=== PATIENT | female | born 1970 | race Caucasian/White ===

== ENCOUNTER → 2018-04-15 10:22 | Outpatient (REF) | payer MEDICAID, SELFPAY ==
[2018-04-15 15:52] LABS: TSH (W/Ref FT4) 3.58 uIU/mL (0.358-3.74)
== END ==
LOC: NCHCN 10:22
PROVIDERS: PCP Nurse Practitioner Family; Visit Provider Nurse Practitioner Family
DX: E03.9 Hypothyroidism, unspecified (principal)
CPT/HCPCS: 84443

== ENCOUNTER 2018-11-03 14:55 | Outpatient (REF) | payer MEDICAID, SELFPAY ==
[2018-11-03 19:49] LABS: TSH (W/Ref FT4) 2.91 uIU/mL (0.358-3.74)
== END 2018-11-03 15:15 ==
LOC: NCHCN 14:55
PROVIDERS: PCP Nurse Practitioner Family; Visit Provider Nurse Practitioner Family
DX: E03.9 Hypothyroidism, unspecified (principal)
CPT/HCPCS: 84443

== ENCOUNTER 2019-02-24 01:53 | Outpatient (CLI) | payer MEDICAID, SELFPAY ==
[2019-02-24 10:01] LABS: HCT 42.7 % (36.0-46.0); HGB 14.2 g/dL (12.0-15.5); Mean Corp. HGB Concentration 33.3 g/dL (32.0-36.0); Mean Corpuscular Hemoglobin 27.7 pg (27.0-33.0); Mean Corpuscular Volume 83.2 fL (80-95); Mean Platelet Volume 9.9 fL (8.0-11.0); Platelet Count 210 x1000/uL (130-400); RBC 5.13 m/cumm (4.00-5.20); RBC Distribution Width 14.4 % (11.7-14.6)
[2019-02-24 10:40] LABS: ALT 29 U/L (12-78); AST 14 U/L (15-37); Albumin 3.7 g/dL (3.4-5.0); Alkaline Phosphatase 78 U/L (46-116); Anion Gap 8.6 mmol/L (3-11); BUN 16 mg/dL (7-18); Bilirubin, Total 0.4 mg/dL (0.2-1.0); CO2 28.4 mmol/L (21.0-32.0); CREATININE 0.93 mg/dL (0.55-1.02); Calcium 8.8 mg/dL (8.5-10.1); Calculated LDL 195 mg/dL; Chloride 107 mmol/L (98-107); Cholesterol 271 mg/dL (50-200); Glucose 101 mg/dL (70-100); HDL Cholesterol 55 mg/dL (40-60); Potassium 4.8 mmol/L (3.5-5.1); Sodium 144 mmol/L (136-145); TSH (W/Ref FT4) 5.56 uIU/mL (0.358-3.74); Total Protein 6.8 g/dL (6.4-8.2); Triglyceride 105 mg/dL (30-150)
[2019-02-24 10:56] LABS: FREE T4 0.92 ng/dL (0.76-1.46)
== END 2019-02-24 02:13 ==
PROVIDERS: PCP Nurse Practitioner Family; Visit Provider Nurse Practitioner Family
DX: E03.9 Hypothyroidism, unspecified (principal); R53.83 Other fatigue
CPT/HCPCS: 36415; 80053; 80061; 83721; 85027; 84439; 84443

== ENCOUNTER 2019-04-20 08:06 | Outpatient (REF) | payer MEDICAID, SELFPAY ==
[2019-04-20 12:15] LABS: ALT 32 U/L (14-59); AST 17 U/L (15-37); Albumin 3.9 g/dL (3.4-5.0); Alkaline Phosphatase 82 U/L (46-116); BUN 8 mg/dL (7-18); Bilirubin, Total 0.4 mg/dL (0.2-1.0); CO2 30.1 mmol/L (21.0-32.0); CREATININE 0.76 mg/dL (0.55-1.02); Calcium 8.9 mg/dL (8.5-10.1); Chloride 106 mmol/L (98-107); Glucose 111 mg/dL (70-100); TSH (W/Ref FT4) 2.18 uIU/mL (0.36-3.74)
[2019-04-20 12:20] LABS: Anion Gap 7.9 mmol/L (3-11); Potassium 4.2 mmol/L (3.5-5.1); Sodium 144 mmol/L (136-145)
== END 2019-04-20 08:26 ==
LOC: NCHCN 08:06
PROVIDERS: PCP Nurse Practitioner Family; Visit Provider Nurse Practitioner Family
DX: E03.9 Hypothyroidism, unspecified (principal); Z79.899 Other long term (current) drug therapy
CPT/HCPCS: 80053; 84443

== ENCOUNTER 2019-10-07 02:09 | Emergency (ER) | payer MEDICAID, SELFPAY ==
--- NOTE | 2019-10-07 02:14 | ED.GENADUL_ITS ---
Discharge Plan Disposition Patient Disposition: HOME Condition: Good Discharge Details Chief Complaint: Anxiety Clinical Impression: Panic attack, Atypical chest pain Primary Care Provider: Esdras Lopez ED Provider: Morgan Solares Backus Meds and New Rx's Prescriptions: Continued levothyroxine 75 MCG tablet 100 mcg PO DAILY RF: 0 melatonin 5 MG tablet 5 mg PO HS RF: 0 sertraline 100 mg Tablet 150 mg PO HS RF: 0 amitriptyline 25 mg Tablet 25 mg PO HS RF: 0 buspirone 15 mg Tablet 15 mg PO BID RF: 0 Discharge Instructions Additional Instructions: Continue current medications and follow-up with primary care. Return to ED for new or different chest pain, shortness of breath, uncontrolled anxiety, other concerns problems. Referrals: Esdras Lopez, [facility] [Primary Care Provider] - Medical Decision Making Patient presenting with severe panic attack which she has not had in quite some time. Has learned various techniques to usually control her anxiety and is on different medications. Tonight unable to control anxiety which led to full- blown panic attack. The rib and back pain that she is experiencing now she has experienced in the past with panic attacks but not for some time due to ability to control things. There is no SI or HI. Will give IM Ativan to help with her anxiety. Will obtain EKG once patient more comfortable. Given her history and her symptoms similar to this in the past I am not overly concerned that there is any type of cardiac event going on. 3AM - Ativan has broken the anxiety/panic attack and she is meditating and using breathing techniques at this time. EKG without any acute changes. Now just pain/spasm which she usually uses heating pads for. Will give IM Toradol. 3:30 AM - Toradol has helped with her pain. She is much more relaxed. Feels better and wants to go home. Again confirms that this is not something new and she has had pain/attacks like this previously. Will follow up with PCP. ECG Data Attestation: I personally reviewed and interpreted this ECG (s) as follows: Prior ECG tracings: not available for review Interpretation: Sinus rhythm at 63 with normal axis and intervals. No ST changes. HPI General Mode of arrival: ambulatory . Date/Time Provider Initiated Documentation: 10/07/19 02:11 . Limitations to Documentation: no limitations . Information obtained by: patient and RN notes reviewed . HPI Narrative: Patient presents to ED with anxiety/panic attack. Patient has history of same. She is on medications and uses mindful meditation and cognitive behavioral therapy to help manage things. Natasha started to have anxiety around 6 PM. Did her typical things that usually work but got progressively worse tonight instead. Has now developed severe anxiety with rib, sternal, back pain which she has not had in a long time because she has been able to control her anxiety so much better now. She had one episode of vomiting because of the pain. She has not been ill recently. She just saw her primary care yesterday morning for med check. There is no SI. Related Data Home Medications Medication Instructions Recorded Confirmed levothyroxine 100 mcg PO DAILY 03/16/16 10/07/19 melatonin 5 mg PO HS 09/07/17 amitriptyline 25 mg PO HS 10/07/19 10/07/19 buspirone 15 mg PO BID 10/07/19 10/07/19 sertraline 150 mg PO HS 10/07/19 10/07/19 Allergies Allergy/AdvReac Type Severity Reaction Status Date / Time No Known Allergies Allergy Unverified 10/07/19 02:21 Review of Systems Narrative: As documented in HPI otherwise negative as below. Const: no fever, chills, weakness Resp: no cough, SOB, pleuritic pain CV: CP; no diaphoresis, edema, syncope GI: vomiting x1; no abdominal pain, nausea, diarrhea Neuro: no headache, numbness, focal weakness, confusion PFSH Medical History Anxiety (Acute) DVT (deep venous thrombosis) (Inactive) Hypercholesterolemia (Chronic) Hypothyroidism (Chronic) Surgical History section (Inactive) X 3 Dilation and curettage (Inactive) X 2 for menorrhagia Endometrial Ablation (Inactive ~2007) Family History Mother Diabetes Heart disease Social History Smoking/Tobacco Use Status: Never Alcohol Intake: never Drug use: Never Substance use type: does not use Do you feel safe at home: Yes Do you feel safe in your relationship?: Yes Exam Narrative Exam Narrative: Vitals: Afebrile. Elevated blood pressure otherwise normal vitals and normal room air pulse ox. Const: Obese female in position crying. HEENT: NC/AT. Neck: Supple. Trachea midline. Lungs: Normal respiratory effort. Lungs are clear. Cor: RRR without murmur/gallop. Good radial pulses. Neuro: A+O x 3. Normal speech, mentation, gait. Cranial nerves II - XII grossly intact. No gross motor or sensory deficit. Psych: Crying, anxious, postion. No SI/HI.
[2019-10-07 02:16] VITALS: BP 168/98; PULSE 72; RESP 20; TEMP 36.8; O2SAT 98
[2019-10-07] MEDS: LORazepam 2 MG/ML VIAL IM (02:25)
[2019-10-07 02:47] VITALS: RESP 20
[2019-10-07] MEDS: Ketorolac 30 MG/ML VIAL IM (03:11)
[2019-10-07 03:59] VITALS: BP 168/98; PULSE 72; RESP 20; TEMP 36.8; O2SAT 98
== END 2019-10-07 03:55 | disposition home or self-care (01) ==
PROVIDERS: Emergency Provider Emergency Medicine; PCP Nurse Practitioner Family
DX: F41.0 Panic disorder [episodic paroxysmal anxiety] (principal); R07.89 Other chest pain; R11.11 Vomiting without nausea
CPT/HCPCS: 93005; 96372; 99284; 93010; J1885; J2060

== ENCOUNTER 2020-05-30 00:47 | Outpatient (CLI) | payer MEDICAID, SELFPAY ==
--- NOTE | 2020-05-30 10:12 | DI.MAMMO_ITS ---
EXAM: MAMMO SCREENING CLINICAL HISTORY: SCREENING,Z12.39 TECHNIQUE: Mammograms were interpreted according to the usual protocol including computer analysis w [employer] CAD system, tomosynthesis and C-view imaging. COMPARISON: FINDINGS: The breasts are of moderate density with fairly symmetrical distribution of fibroglandular tissue. N o dominant mass or clumped microcalcification is identified in either breast. The current examinatio n is compared with previous examinations including November 2016 and there has been no gross interval ch trent in appearance in comparison with the prior studies. IMPRESSION: No specific evidence of malignancy at this time. Routine screening examinations are suggested yearly intervals in this age group according to the ACS ACR guidelines. BI-RADS Category 1 - Negative Breast Density - Category B - Scattered areas of fibroglandular density
== END 2020-05-30 01:07 ==
PROVIDERS: PCP Nurse Practitioner Family; Visit Provider Nurse Practitioner Family
DX: Z12.31 Encounter for screening mammogram for malignant neoplasm of breast (principal)
CPT/HCPCS: 77063; 77067

== ENCOUNTER 2020-10-07 01:39 | Outpatient (CLI) | payer MEDICAID, SELFPAY ==
[2020-10-07 11:09] LABS: FREE T4 1.14 ng/dL (0.76-1.46)
== END 2020-10-07 01:40 | disposition home or self-care (01) ==
LOC: LBO 01:39
PROVIDERS: PCP Nurse Practitioner Family; Visit Provider Nurse Practitioner Family
DX: R53.83 Other fatigue (principal); E03.9 Hypothyroidism, unspecified
CPT/HCPCS: 36415; 84439; 84443

== ENCOUNTER 2020-12-23 09:55 | Outpatient (REF) | payer MEDICAID, SELFPAY ==
[2020-12-23 15:49] LABS: Calculated LDL 75 mg/dL (<100); Cholesterol 142 mg/dL (<200); HDL Cholesterol 44 mg/dL (40-60); TSH (W/Ref FT4) 3.46 uIU/mL (0.36-3.74); Triglyceride 115 mg/dL (<150)
== END 2020-12-23 09:56 | disposition home or self-care (01) ==
LOC: NCHCN 09:55
PROVIDERS: PCP Nurse Practitioner Family; Visit Provider Nurse Practitioner Family
DX: E03.9 Hypothyroidism, unspecified (principal); E78.5 Hyperlipidemia, unspecified
CPT/HCPCS: 80061; 84443

== ENCOUNTER 2021-04-22 12:53 | Emergency (ER) | payer MEDICAID, SELFPAY ==
--- NOTE | 2021-04-22 12:45 | RT.EKG_ITS ---
APPROVED REPORT Exam: Resting ECG Reason for Exam: possible clot Patient Location: E Ht:1 ft 1 in Wt:1 lbs BSA: 0.06 m2 HR:54 bpm ECG Measurements Heart Rate 54 AXIS OH 228 P 40 QRSd 110 QRS -15 QT 453 T -22 QTc 430 Conclusion Sinus bradycardia...rate< 60 Prolonged OH interval...OH >210, V-rate 50- 90 Physician: No STEMI, unremarkable
[2021-04-22 12:57] VITALS: BP 136/92; PULSE 106; TEMP 36.2; O2SAT 100
--- NOTE | 2021-04-22 13:12 | ED.GENADUL_ITS ---
Discharge Plan Disposition Patient Disposition: HOME Condition: Good Discharge Details Clinical Impression: Superficial thrombophlebitis Primary Care Provider: Esdras Lopez ED Provider: Audi Lagos Home Meds and New Rx's Prescriptions: New cephalexin 500 mg capsule 500 mg PO QID 5 Days Qty: 20 RF: 0 Continued levothyroxine 75 MCG tablet 100 mcg PO DAILY RF: 0 melatonin 5 MG tablet 5 mg PO HS RF: 0 sertraline 100 mg Tablet 150 mg PO HS RF: 0 amitriptyline 25 mg Tablet 25 mg PO HS RF: 0 buspirone 15 mg Tablet 15 mg PO BID RF: 0 Discharge Instructions Instructions: Superficial Thrombophlebitis (ED) Additional Instructions: At this time you show evidence of superficial thrombophlebitis which is a very small clot in your superficial varicose vein. Please take a daily 325 mg aspirin for the next week, apply heat as often as possible throughout the day, take Tylenol and Motrin as needed for pain, and apply the Bashir wrap throughout the day. At this time there is no evidence of infection, however if you do notice redness or no improvement of your symptoms over the next 48 hours please take the antibiotic as directed. If you notice any worsening of your symptoms, or any new symptoms such as vomiting, diarrhea, fever, chills, shortness of breath, chest pain, numbness, weakness, or fainting , please return immediately to the emergency department for reevaluation. Please follow up with your primary care provider as soon as possible for reassessment and reevaluation. As always, it was a pleasure participating in your medical care today. Referrals: Esdras Lopez, [facility] [Primary Care Provider] - Medical Decision Making This is a 50-year-old female with a past medical history of previous superficial thrombophlebitis, high cholesterol, hypothyroidism, anxiety, who presents today for evaluation of suspected superficial thrombophlebitis. Patient states that yesterday she developed mild tenderness on her varicosity on her left anterior lateral thigh. She states that she has had this before, never been on and has never been on blood thinners, but it usually gets better with antibiotics and heating/warm compresses. Patient denies any chest pain, shortness of breath, long trips, surgeries, or procedures. She denies any previous pulmonary embolisms or DVTs requiring anticoagulation. She has no other complaints at this time. No other modifying factors. She denies any calf tenderness. Exam demonstrates evidence clinically consistent with superficial thromb ophlebitis. No clinical evidence of DVT. Patient will be recommended for Tylenol Motrin or aspirin, warm compresses, and she'll be given an antibiotic if she does develop any redness or worsening of her pain over the next 48 hours. Discussed red flags which to return. No indication for systemic anticoagulation at this time. I have extensively reviewed the treatment plan and discharge instructions with the patient. I have addressed all patient concerns at this time. The patient was made aware of what symptoms to monitor for that would warrant a return to the emergency department. Discussed the plan with the patient, they demonstrate verbal understanding and agreement with our assessment and plan at this time. The documentation in this chart was dictated using [employer] dictation software. Please excuse any dictation errors. HPI General Date/Time Provider Initiated Documentation: 04/22/21 12:57 . HPI Narrative: This is a 50-year-old female with a past medical history of previous superficial thrombophlebitis, high cholesterol, hypothyroidism, anxiety, who presents today for evaluation of suspected superficial thrombophlebitis. Patient states that yesterday she developed mild tenderness on her varicosity on her left anterior lateral thigh. She states that she has had this before, never been on and has never been on blood thinners, but it usually gets better with antibiotics and heating/warm compresses. Patient denies any chest pain, shortness of breath, long trips, surgeries, or procedures. She denies any previous pulmonary embolisms or DVTs requiring anticoagulation. She has no other complaints at this time. No other modifying factors. She denies any calf tenderness. Related Data Home Medications Medication Instructions Recorded Confirmed levothyroxine 100 mcg PO DAILY 03/16/16 10/07/19 melatonin 5 mg PO HS 09/07/17 amitriptyline 25 mg PO HS 10/07/19 10/07/19 buspirone 15 mg PO BID 10/07/19 10/07/19 sertraline 150 mg PO HS 10/07/19 10/07/19 cephalexin 500 mg PO QID 5 Days #20 cap 04/22/21 Previous Rx's Medication Instructions Recorded cephalexin 500 mg PO QID 5 Days #20 cap 04/22/21 Allergies Allergy/AdvReac Type Severity Reaction Status Date / Time No Known Allergies Allergy Unverified 10/07/19 02:21 General Stated Complaint: Vascular CARLOS: 3 Review of Systems All systems reviewed & are unremarkable except as noted in HPI and below PFSH Medical History Anxiety DVT (deep venous thrombosis) Hypercholesterolemia Hypothyroidism Surgical History section X 3 Dilation and curettage X 2 for menorrhagia Endometrial Ablation (~2007) Family History Mother Diabetes Heart disease Social History Smoking/Tobacco Use Status: Never Smoking risk assessment performed?: Yes Alcohol Intake: never Drug use: Never Substance use type: does not use Do you feel safe at home: Yes Do you feel safe in your relationship?: Yes Exam Narrative Exam Narrative: 1.Const: Well-nourished, Well-developed, appearing stated age 2.Eyes: PERRL, no conjunctival injection, and symmetrical lids. 3.ENT: Atraumatic external nose and ears. Moist MM. Neck: Symmetric, trachea midline, No thyromegaly. 4.CVS: +S1/S2, No murmurs or gallops. Peripheral pulses 2+ and equal in all extremities. Brisk capillary refill in all extremities. 5.RESP: Unlabored respiratory effort. Clear to auscultation bilaterally. No wheezes rales or rhonchi 6.GI: Soft, Nontender/Nondistended, No hepatosplenomegaly. No guarding or rebound. 7.MSK: Normocephalic/Atraumatic, Extremities w/o deformity or ttp No cyanosis or clubbing, Normal movement of all extremities. No tenderness at the calf or medial thigh or posterior popliteal space, patient does have a palpable superficial varicosity, it is mildly tender, no redness or warmth. Bedside ultrasound shows compressibility proximally and distally to this, no compressibility over is very small segment for this superficial varicosity. 8.Skin: Warm, Dry. No rashes or lesions. 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 Sensation grossly intact, no focal neurologic deficits. 10.Psych: (AAO) x3. Appropriate mood and affect Course Vital Signs Vital signs: Vital Signs Temperature 36.2 C L 04/22/21 12:57 Pulse 106 H 04/22/21 12:57 Blood Pressure 136/92 H 04/22/21 12:57 Pulse Oximetry 100 04/22/21 12:57 Temperature 36.2 C L 04/22/21 12:57 Temperature Source Temporal Artery Scan 04/22/21 12:57 Pulse 106 H 04/22/21 12:57 Respiratory Effort 04/22/21 13:01 Blood Pressure 136/92 H 04/22/21 12:57 Blood Pressure Position Sitting 04/22/21 12:57 Pulse Oximetry 100 04/22/21 12:57 Oxygen Delivery Method Room Air 04/22/21 12:57 Oxygen Flow Rate 0 04/22/21 12:57 Pain Level 2 04/22/21 12:57
== END 2021-04-22 13:23 | disposition home or self-care (01) ==
PROVIDERS: Emergency Provider Student in an Organized Health Care Education/Training Program; PCP Nurse Practitioner Family
DX: I80.02 Phlebitis and thrombophlebitis of superficial vessels of left lower extremity (principal)
CPT/HCPCS: 93005; 99283; 93010

== ENCOUNTER 2021-10-21 16:56 | Emergency (ER) | payer MEDICAID, SELFPAY ==
[2021-10-21 16:58] VITALS: BP 159/98; PULSE 91; RESP 18; TEMP 36.3; O2SAT 98
--- NOTE | 2021-10-21 17:31 | ED.GENADUL_ITS ---
Discharge Plan Disposition Patient Disposition: HOME Condition: Stable Discharge Details Clinical Impression: Shingles Primary Care Provider: Esdras Lopez ED Provider: Christine Whitney Home Meds and New Rx's Prescriptions: New valacyclovir 1 gram tablet 1,000 mg PO TID Qty: 21 0RF Continued levothyroxine 75 MCG tablet 100 mcg PO DAILY 0RF amitriptyline 25 mg Tablet 25 mg PO HS 0RF buspirone 15 mg Tablet 15 mg PO BID 0RF atorvastatin 40 mg tablet 40 mg PO DAILY 0RF Label Comments: TAKE ONE TABLET BY MOUTH EVERY DAY lorazepam 1 mg tablet 1 - 2 mg PO HS [id number] Label Comments: TAKE 1 TO 2 TABLETS ORALLY AT BEDTIME NEEDED USE SPARINGLY Discharge Instructions Instructions: Shingles (ED) Additional Instructions: keep wound clean and dry. see shingles information sheet take all medications as directed Referrals: Esdras Lopez [employer] [Primary Care Provider] - Discharge Data Discharge Date/Time-TO BE ENTERED AT DEPARTURE: 10/21/21 18:06 Medical Decision Making <Christine Whitney NP - Last Filed: 10/22/21 21:44> presents with rash most consistent with shingles will treat with valcyclovir Medical Records Medical records reviewed: Yes I reviewed the patient's medical records. <Kiersten Sharma DO - Last Filed: 10/23/21 08:51> presents with rash most consistent with shingles will treat with valcyclovir Dr. Sharma -- pt not seen or evaluated by me but I was available for consultation in the emergency department. HPI <Christine Whitney NP - Last Filed: 10/22/21 21:44> General Date/Time Provider Initiated Documentation: 10/21/21 17:06 . Limitations to Documentation: no limitations . Information obtained by: patient . HPI Narrative: noticed itching and burning on back today Related Data Home Medications Medication Instructions Recorded Confirmed levothyroxine 75 mcg tablet 100 mcg PO DAILY 03/16/16 10/21/21 amitriptyline 25 mg tablet 25 mg PO HS 10/07/19 10/21/21 buspirone 15 mg tablet 15 mg PO BID 10/07/19 10/21/21 atorvastatin 40 mg tablet 40 mg PO DAILY 10/21/21 10/21/21 lorazepam 1 mg tablet 1 - 2 mg PO HS PRN 10/21/21 10/21/21 valacyclovir 1 gram tablet 1,000 mg PO TID #21 tab 10/21/21 Previous Rx's Medication Instructions Recorded valacyclovir 1 gram tablet 1,000 mg PO TID #21 tab 10/21/21 Allergies Allergy/AdvReac Type Severity Reaction Status Date / Time animal dander AdvReac Mild runny nose Unverified 10/21/21 17:04 General Stated Complaint: RashLesion CARLOS: 4 Review of Systems <Christine Whitney NP - Last Filed: 10/22/21 21:44> All systems reviewed & are unremarkable except as noted in HPI and below Integumentary/Breasts Skin/Breast: Reports rash PFSH <Christine Whitney NP - Last Filed: 10/22/21 21:44> All Active Problems (Updated 10/21/21 @ 17:32 by Christine Whitney NP) Panic attack (Acute) Atypical chest pain (Acute) Superficial thrombophlebitis (Acute) Shingles (Acute) Hypercholesterolemia (Chronic) Hypothyroidism (Chronic) Anxiety (Acute) Family History Mother Diabetes Heart disease Social History Smoking/Tobacco Use Status: Never Smoking risk assessment performed?: Yes Alcohol Intake: never Drug use: Occasionally Substance use type: marijuana Do you feel safe at home: Yes Do you feel safe in your relationship?: Yes Additional Social history: states somewhat does not offer additional information declines assistance from ER staff Exam <Christine Whitney NP - Last Filed: 10/22/21 21:44> Const General: cooperative, healthy appearing, comfortable and no acute distress Nutritional Appearance: overweight Orientation: alert, awake and oriented x3 Chest Chest: normal inspection of the chest Resp Effort & Inspection: normal respiratory effort Auscultation: clear to auscultation bilaterally Cardio Rate: regular rate Rhythm: regular rhythm GI Inspection: normal to inspection Palpation: soft Skin Rashes: rashes noted (left side of upper back red macular with vesicles. ) Neuro General: patient alert, patient awake and patient oriented x3 Extrem General: normal to inspection and full ROM Course <SERGEY Bustos Last Filed: 10/22/21 21:44> Vital Signs Vital signs: Vital Signs Temperature 36.3 C L 10/21/21 16:58 Pulse 91 H 10/21/21 16:58 Respiratory Rate 18 10/21/21 16:58 Blood Pressure 159/98 H 10/21/21 16:58 Pulse Oximetry 98 10/21/21 16:58 Temperature 36.3 C L 10/21/21 16:58 Temperature Source Temporal Artery Scan 10/21/21 16:58 Pulse 91 H 10/21/21 16:58 Respiratory Rate 18 10/21/21 16:58 Respiratory Effort 10/21/21 17:08 Blood Pressure 159/98 H 10/21/21 16:58 Blood Pressure Position Sitting 10/21/21 16:58 Pulse Oximetry 98 10/21/21 16:58 Oxygen Delivery Method Room Air 10/21/21 16:58 Oxygen Flow Rate 0 10/21/21 16:58 Pain Level 3 10/21/21 16:58
[2021-10-21] MEDS: valACYclovir 500 MG TAB (18:02)
== END 2021-10-21 18:06 | disposition home or self-care (01) ==
PROVIDERS: Emergency Provider Nurse Practitioner Acute Care; PCP Nurse Practitioner Family
DX: B02.9 Zoster without complications (principal)
CPT/HCPCS: 99283

== ENCOUNTER 2022-04-26 12:50 | Emergency (ER) | payer MEDICAID, SELFPAY ==
[2022-04-26 12:52] VITALS: BP 131/70; PULSE 94; RESP 16; TEMP 36.5; O2SAT 98
--- NOTE | 2022-04-26 14:00 | DI.US_ITS ---
Exam(s) US LOWER EXTREMITY VENOUS LT EXAM: US LOWER EXTREMITY VENOUS LT CLINICAL HISTORY: left leg swelling, r/o dvt TECHNIQUE: Grayscale, color, and doppler imaging of the deep venous system of the left lower extremi ty was performed. COMPARISON: US AXILLA ONLY RIGHT from 04/20/2016 FINDINGS: There is no evidence of intraluminal thrombus and there is normal compression and augmentation demons trated within the common femoral vein, femoral vein, and popliteal vein. In the ipsilateral calf the interrogated veins also exhibit normal compression/ augmentation properti es. The ipsilateral saphenofemoral junction is patent. IMPRESSION: 1. No evidence of DVT in the left lower extremity. DATA REPOSITORY:
--- NOTE | 2022-04-26 14:58 | ED.GENADUL_ITS ---
Discharge Plan Disposition Patient Disposition: HOME Condition: Stable Discharge Details Clinical Impression: Superficial thrombophlebitis of left leg Primary Care Provider: Esdras Lopez ED Provider: Joao Crews Home Meds and New Rx's Prescriptions: New cephalexin 500 mg tablet 500 mg PO TID Qty: 21 0RF No Action levothyroxine 75 MCG tablet 100 mcg PO DAILY amitriptyline 25 mg Tablet 25 mg PO HS buspirone 15 mg Tablet 15 mg PO BID atorvastatin 40 mg tablet 40 mg PO DAILY Label Comments: TAKE ONE TABLET BY MOUTH EVERY DAY lorazepam 1 mg tablet 1 - 2 mg PO HS PRN Label Comments: TAKE 1 TO 2 TABLETS ORALLY AT BEDTIME NEEDED USE SPARINGLY valacyclovir 1 gram tablet 1,000 mg PO TID Qty: 21 0RF Discharge Instructions Instructions: Superficial Thrombophlebitis (ED) Additional Instructions: Please take antibiotic as prescribed. You were given initial dose here in the emergency department. Your next dose is this evening. Medication reconciliation could not be performed today. Please be sure to review your medications with your prescribing physician and take as prescribed. Please contact your primary care physician to arrange follow-up. Return to the ER immediately for any worsening or new concerning symptoms. Referrals: Esdras Lopez, [employer]ISHER [Primary Care Provider] - Medical Decision Making 51-year-old female with history of remote peripartum DVTs, superficial thr ombophlebitis, here with focal area of tenderness and inflammation left lateral distal upper leg. Given history there was concern for potential DVT. Ultrasound was obtained and interpreted by radiology: Negative for DVT. I did treat for superficial thrombophlebitis. Plan for warm compresses and NSAID. Patient notes she has been performing compresses and using compression pants and has not had relief. She is concerned noting that in the past she is required antibiotics and is requesting antibiotic treatment at this time. Informed consent was obtained and patient initiated on treatment with Keflex. Usual customary discharge instructions reviewed with the patient. HPI General Mode of arrival: ambulatory . Date/Time Provider Initiated Documentation: 04/26/22 13:01 . Limitations to Documentation: no limitations . Information obtained by: patient . HPI Narrative: 51-year-old female presents with chief complaint of inflammation of the left leg vein. Patient notes symptoms started yesterday afternoon and have persisted. Patient notes she has had history of DVTs in the remote past with and then subsequently superficial thrombophlebitis that was successfully treated with antibiotic. Patient as she has been doing warm compresses since symptoms started and using compression pants. Symptoms or not improving. Patient notes she required antibiotics in the past. She denies associated fever. Related Data Home Medications Medication Instructions Recorded Confirmed levothyroxine 75 mcg tablet 100 mcg PO DAILY 03/16/16 10/21/21 amitriptyline 25 mg tablet 25 mg PO HS 10/07/19 10/21/21 buspirone 15 mg tablet 15 mg PO BID 10/07/19 10/21/21 atorvastatin 40 mg tablet 40 mg PO DAILY 10/21/21 10/21/21 lorazepam 1 mg tablet 1 - 2 mg PO HS PRN 10/21/21 10/21/21 valacyclovir 1 gram tablet 1,000 mg PO TID #21 tabs 10/21/21 cephalexin 500 mg tablet 500 mg PO TID #21 tabs 04/26/22 Previous Rx's Medication Instructions Recorded valacyclovir 1 gram tablet 1,000 mg PO TID #21 tabs 10/21/21 cephalexin 500 mg tablet 500 mg PO TID #21 tabs 04/26/22 Allergies Allergy/AdvReac Type Severity Reaction Status Date / Time animal dander AdvReac Mild runny nose Unverified 04/26/22 12:59 General Stated Complaint: Vascular CARLOS: 3 Review of Systems Constitutional Constitutional: Denies fever(s) Cardiovascular Cardiovascular: Denies chest pain and Denies dyspnea Respiratory Respiratory: Denies dyspnea Integumentary/Breasts Skin/Breast: Reports as per HPI PFSH All Active Problems Panic attack (Acute) Atypical chest pain (Acute) Superficial thrombophlebitis (Acute) Superficial thrombophlebitis of left leg (Acute) Hypercholesterolemia (Chronic) Hypothyroidism (Chronic) Anxiety (Acute) Family History Mother Diabetes Heart disease Social History Smoking/Tobacco Use Status: Never Smoking risk assessment performed?: Yes Alcohol Intake: never Drug use: Occasionally Substance use type: marijuana Do you feel safe at home: Yes Do you feel safe in your relationship?: Yes Additional Social history: states somewhat does not offer additional information declines assistance from ER staff Exam Const General: cooperative and no acute distress HENMT Mouth: moist mucous membranes Eyes Conjunctivae: normal conjunctivae Sclera: normal sclerae Cardio Rate: regular rate and not tachycardic Rhythm: regular rhythm Skin General skin exam: no rashes or lesions noted Neuro General: patient alert and patient awake Extrem General: no calf tenderness and no edema Left lower extremity: lower leg (Focal area of superficial venous swelling, tender with mild warmth) Details: erythema (Mild surrounding tender area); no ecchymosis Course Vital Signs Vital signs: Vital Signs Temperature 36.5 C 04/26/22 12:52 Pulse 94 H 04/26/22 12:52 Respiratory Rate 16 04/26/22 12:52 Blood Pressure 131/70 04/26/22 12:52 Pulse Oximetry 98 04/26/22 12:52 Temperature 36.5 C 04/26/22 12:52 Temperature Source Skin 04/26/22 12:52 Pulse 94 H 04/26/22 12:52 Respiratory Rate 16 04/26/22 12:52 Blood Pressure 131/70 04/26/22 12:52 Blood Pressure Position Sitting 04/26/22 12:52 Pulse Oximetry 98 04/26/22 12:52 Oxygen Delivery Method Room Air 04/26/22 12:52 Oxygen Flow Rate 0 04/26/22 12:52 Pain Level 2 04/26/22 12:52
[2022-04-26] MEDS: Cephalexin 500 MG CAP PO (15:18)
== END 2022-04-26 15:20 | disposition home or self-care (01) ==
PROVIDERS: Emergency Provider Student in an Organized Health Care Education/Training Program; PCP Nurse Practitioner Family
DX: I80.02 Phlebitis and thrombophlebitis of superficial vessels of left lower extremity (principal)
CPT/HCPCS: 99283; 93971; 99284

== ENCOUNTER 2022-05-07 17:23 | Outpatient (REF) | payer MEDICAID, SELFPAY ==
[2022-05-07 15:45] LABS: HGB 13.9 g/dL (11.2-15.7); MCH 28.8 pg (27.0-33.0); MCHC 33.1 % (32.0-36.0); MCV 87 fL (80-95); MPV 10.5 fL (8.0-11.0); Platelet Count 225 10^3/uL (130-400); RBC 4.83 10^6/uL (3.93-5.22); RDW 12.5 % (11.7-14.6); RDW-SD 40.3 fL; WBC 6.26 10^3/uL (4.4-10.8)
[2022-05-07 15:54] LABS: ESR 29 mm/hr (0-30)
[2022-05-07 16:06] LABS: ALT 35 U/L (14-59); AST 25 U/L (15-37); Albumin 3.3 g/dL (3.4-5.0); Alkaline Phosphatase 93 U/L (46-116); Anion Gap 6.3 mmol/L (3-11); BUN 16 mg/dL (7-18); Bilirubin, Total 0.4 mg/dL (0.2-1.0); C-Reactive Protein 2.41 mg/dL (0.0-0.3); CO2 30.7 mmol/L (21.0-32.0); CREATININE 1.1 mg/dL (0.55-1.02); Calcium 8.9 mg/dL (8.5-10.1); Chloride 100 mmol/L (98-107); Estimated GFR 60.84 (mL/min/1.73m2); Glucose 232 mg/dL (74-106); Potassium 4.6 mmol/L (3.5-5.1); Sodium 137 mmol/L (136-145); TSH (W/Ref FT4) 2.11 uIU/mL (0.36-3.74); Total Protein 7.3 g/dL (6.4-8.2)
[2022-05-08 15:34] LABS: ANA Interpretation Negative (Negative)
== END 2022-05-07 17:24 | disposition home or self-care (01) ==
LOC: NCHCN 17:23
PROVIDERS: Visit Provider Nurse Practitioner Family
DX: E03.9 Hypothyroidism, unspecified (principal); R53.83 Other fatigue; M79.18 Myalgia, other site
CPT/HCPCS: 80053; 85027; 85652; 84443; 86038; 86140

== ENCOUNTER 2022-07-11 17:01 | Emergency (ER) | payer MEDICAID, SELFPAY ==
[2022-07-11 17:11] VITALS: BP 117/82; PULSE 91; RESP 18; TEMP 35.6; O2SAT 96
--- NOTE | 2022-07-11 17:30 | DI.RAD_ITS ---
Exam(s) XR HIP LT COMPLETE AP PELVIS EXAM: XR HIP LT COMPLETE AP PELVIS CLINICAL HISTORY: L lateral/posterior pain TECHNIQUE: COMPARISON: No exams were available for comparison FINDINGS: Three views were obtained. Moderate degenerative changes of the lower lumbar spine and SI joints not ed. Mild DJD of both hips noted.. No other significant bony or soft tissue abnormality seen IMPRESSION: RADIATION DOSE DELIVERED: Total DLP
--- NOTE | 2022-07-11 17:41 | ED.GENADUL_ITS ---
Discharge Plan Disposition Patient Disposition: Home Condition: Improving Discharge Details Clinical Impression: Acute left-sided low back pain with sciatica Primary Care Provider: Unknown,Unknown ED Provider: Miguelangel Christie Home Meds and New Rx's Prescriptions: New prednisone 50 mg tablet 50 mg PO DAILY 5 Days Qty: 5 0RF lorazepam [Ativan] 1 mg tablet 1 mg PO QHS PRN (Reason: spasm) Qty: 7 0RF Continued levothyroxine 75 MCG tablet 112 mcg PO DAILY Plus Cbd 1 cap PO TID multivitamin Tablet 1 tab PO DAILY amitriptyline 25 mg Tablet 100 mg PO HS buspirone 15 mg Tablet 15 mg PO TID atorvastatin 40 mg tablet 40 mg PO DAILY Label Comments: TAKE ONE TABLET BY MOUTH EVERY DAY lorazepam 1 mg tablet 1 - 2 mg PO HS PRN Label Comments: TAKE 1 TO 2 TABLETS ORALLY AT BEDTIME NEEDED USE SPARINGLY Discharge Instructions Instructions: Sciatica (ED) Additional Instructions: May try sleeping with a pillow between the knees. Please see referral for physical therapy. Continue ibuprofen as needed for pain. You may also use Tylenol 650 to 1000 mg every 6 hours. Take prednisone once daily until finished. You may utilize the Ativan previously prescribed up to 2 mg at bedtime for muscle relaxation and sleep. I have included a prescribed course of additional Ativan for this specific use. Please remove Lidoderm patch in 12 hours time. Stand Alone Forms: Physical Therapy Referral Medical Decision Making 52-year-old female with intermittent episodes of the left leg pain that starts in her buttock and radiates towards the knee over weeks time. No traumatic injury. She has mild motor weakness, predominantly due to pain in resisted. She has no sensory deficits. Referred her x-ray which does not reveal underlying bony fracture or malalignment. See the formal report. Patient wishes to avoid strong analgesics. We will opt to treat what appears to be acute left sciatica with a burst of prednisone, ongoing use of her benzodiazepine at night and NSAIDs. She may use her prescribed Ativan for muscle relaxation at nighttime. I will refer her for physical therapy. We will trial Lidoderm patch tonight. She is stable and appropriate for outpatient management. Sign Out No HPI General Mode of arrival: ambulatory . Date/Time Provider Initiated Documentation: 07/11/22 17:20 . Limitations to Documentation: no limitations . Information obtained by: patient . History of Present Illness 52 year old F presents to the emergency department with the chief complaint of Left hip and thigh pain intermittent for weeks, described as moderate and severe, Quality is described as dull, and is localized to the left and lower extremity. Patient extremity. Patient started experiencing this week(s) and it has been intermittent. No relieving factors improve symptom(s), No exacerbating factors reported . Patient notes denies headaches and weakness. Patient did receive the following treatments prior to arrival, none Related Data Home Medications Medication Instructions Recorded Confirmed levothyroxine 75 mcg tablet 112 mcg PO DAILY 03/16/16 07/11/22 amitriptyline 25 mg tablet 100 mg PO HS 10/07/19 07/11/22 buspirone 15 mg tablet 15 mg PO TID 10/07/19 07/11/22 atorvastatin 40 mg tablet 40 mg PO DAILY 10/21/21 07/11/22 lorazepam 1 mg tablet 1 - 2 mg PO HS PRN 10/21/21 07/11/22 Plus Cbd 1 cap PO TID 07/11/22 lorazepam 1 mg tablet (Ativan) 1 mg PO QHS PRN spasm #7 tabs 07/11/22 multivitamin 1 tab PO DAILY 07/11/22 07/11/22 prednisone 50 mg tablet 50 mg PO DAILY 5 days #5 tabs 07/11/22 Previous Rx's Medication Instructions Recorded lorazepam 1 mg tablet (Ativan) 1 mg PO QHS PRN spasm #7 tabs 07/11/22 prednisone 50 mg tablet 50 mg PO DAILY 5 days #5 tabs 07/11/22 Allergies Allergy/AdvReac Type Severity Reaction Status Date / Time animal dander AdvReac Mild runny nose Unverified 07/11/22 17:17 General Stated Complaint: Orthopedic CARLOS: 3 Review of Systems Narrative: 6 systems reviewed and otherwise negative. No difficulty with urination. No new numbness. PFSH All Active Problems (Updated 07/11/22 @ 18:20 by Miguelangel Christie MD) Panic attack (Acute) Atypical chest pain (Acute) Superficial thrombophlebitis (Acute) Superficial thrombophlebitis of left leg (Acute) Acute left-sided low back pain with sciatica (Acute) Hypercholesterolemia (Chronic) Hypothyroidism (Chronic) Anxiety (Acute) Family History Mother Diabetes Heart disease Social History Smoking/Tobacco Use Status: Never Smoking risk assessment performed?: Yes Alcohol Intake: never Drug use: Occasionally Substance use type: marijuana Details: CBD capsule Do you feel safe at home: Yes Do you feel safe in your relationship?: Yes Exam Narrative Exam Narrative: GEN: awake, alert, oriented 3. Pleasant, well groomed, interactive. HEAD: Normocephalic, atraumatic ENT: Mucous membranes moist, oropharynx unremarkable, External ear exam unremarkable EYES: PERRL, EOMI NECK: Full ROM, no RUT, no menigismus CHEST/RESP: Nontender, clear to auscultation bilateral, no wheeze/rhonchi/rales CARDIOVASCULAR: RRR, no murmur, rub solitario. 2+ Rad pulse bilateral ABDOMEN: Soft, nontender, no mass. +Bowel sounds EXT: Left leg with 4+ out of 5 weakness. Patient is able to raise against gravity but not against resistance in extension and flexion. Sensation intact throughout the lower extremity. No edema, no rash Neuro: Grossly normal neurologic exam, conversant, interactive. Psych: Speech fluent, thoughts congruent, affect normal Course Vital Signs Vital signs: Vital Signs Temperature 35.6 C L 07/11/22 17:11 Pulse 91 H 07/11/22 17:11 Respiratory Rate 18 07/11/22 17:11 Blood Pressure 117/82 07/11/22 17:11 Pulse Oximetry 96 07/11/22 17:11 Temperature 35.6 C L 07/11/22 17:11 Temperature Source Skin 07/11/22 17:11 Pulse 91 H 07/11/22 17:11 Respiratory Rate 18 07/11/22 17:11 Respiratory Effort 07/11/22 17:21 Blood Pressure 117/82 07/11/22 17:11 Blood Pressure Position Sitting 07/11/22 17:11 Pulse Oximetry 96 07/11/22 17:11 Oxygen Delivery Method Room Air 07/11/22 17:11 Oxygen Flow Rate 0 07/11/22 17:11 Pain Level 10 07/11/22 17:11 Comment 07/11/22 17:11
[2022-07-11] MEDS: Ketorolac 30 MG/ML VIAL IM (17:47)
--- NOTE | 2022-07-11 18:26 | DI.VRAD_ITS ---
PROCEDURE INFORMATION: Exam: XR Left Hip Exam date and time: 07/11/2022 18:00 Age: 52 years old Clinical indication: Hip pain; Left hip; Patient HX: No trauma TECHNIQUE: Imaging protocol: Radiologic exam of the Left hip. Views: 2 or 3 views hip with pelvis when performed. COMPARISON: No relevant prior studies available. FINDINGS: Bones/joints: No acute fracture or subluxation. Minimal degenerative changes in the acetabulum. Soft tissues: Benign-appearing enthesophytes. IMPRESSION: No acute bony pathology. Dictated and Authenticated by: Luiza Renteria MD. Ordering:PAM Means MD
[2022-07-11] MEDS: Lidocaine 5% Patch 1 PATCH TP (18:47)
[2022-07-11] MEDS: predniSONE 20 MG TAB 60 MG PO (18:47)
[2022-07-11 18:49] VITALS: BP 145/83; PULSE 97; RESP 16; O2SAT 100
== END 2022-07-11 18:57 | disposition home or self-care (01) ==
PROVIDERS: Emergency Provider Emergency Medicine
DX: M54.42 Lumbago with sciatica, left side (principal)
CPT/HCPCS: 96372; 99284; 73502; 99283; J1885; J7512

== ENCOUNTER 2022-09-20 15:11 | Outpatient (REF) | payer MEDICAID, SELFPAY ==
[2022-09-20 18:22] LABS: Abs Immature Grans 0.02 10^3/uL (0.0-0.06); Absolute Lymphocyte Count 1.72 10^3/uL (1.2-3.4); Absolute Monocyte Count 0.51 10^3/uL (0.1-0.8); Absolute Neutrophil Count 4.26 10^3/uL (1.2-6.7); Basophils % 1.5; Eosinophils % 2.9; HCT 40.4 % (36.0-46.0); HGB 13.5 g/dL (11.2-15.7); Immature Grans % 0.3; Lymphocytes % 25.3; MCH 28.5 pg (27.0-33.0); MCHC 33.4 % (32.0-36.0); MCV 85 fL (80-95); MPV 10.4 fL (8.0-11.0); Monocytes % 7.5; Neutrophils % 62.5; Platelet Count 238 10^3/uL (130-400); RBC 4.73 10^6/uL (3.93-5.22); RDW 12.9 % (11.7-14.6); RDW-SD 39.6 fL; WBC 6.81 10^3/uL (4.4-10.8)
[2022-09-20 18:25] LABS: Bilirubin Negative (Negative); Blood Trace-intact (Negative); Clarity Clear (Clear); Glucose Negative (Negative); Ketones Negative (Negative); Leukocyte Esterase Moderate (Negative); Nitrite Negative (Negative); Specific Gravity 1.015 (1.005-1.025); Urobilinogen 0.2 EU/dL (Up TO 0.2)
[2022-09-20 18:36] LABS: WBC 20-50 HPF (0-5)
[2022-09-20 18:37] LABS: Epithelial Cells Moderate HPF (Negative)
[2022-09-20 18:38] LABS: Bacteria Moderate HPF (Negative); Casts Negative LPF (Negative); Crystals Negative HPF (Negative); Mucus Negative (Negative)
[2022-09-20 18:39] LABS: C & S Indicated? No
[2022-09-20 18:41] LABS: ALT 41 U/L (14-59); AST 30 U/L (15-37); Albumin 3.4 g/dL (3.4-5.0); Alkaline Phosphatase 101 U/L (46-116); Anion Gap 7.1 mmol/L (3-11); BUN 7 mg/dL (7-18); Bilirubin, Total 0.5 mg/dL (0.2-1.0); CO2 27.9 mmol/L (21.0-32.0); Chloride 105 mmol/L (98-107); Estimated GFR 67.78 (mL/min/1.73m2); Glucose 241 mg/dL (74-106); Potassium 3.9 mmol/L (3.5-5.1); Sodium 140 mmol/L (136-145)
== END 2022-09-20 15:12 | disposition home or self-care (01) ==
LOC: NCHCN 15:11
PROVIDERS: Visit Provider Nurse Practitioner Family
DX: R31.0 Gross hematuria (principal); R39.89 Other symptoms and signs involving the genitourinary system; R39.11 Hesitancy of micturition; R30.0 Dysuria
CPT/HCPCS: 80053; 81003; 81015; 85025

== ENCOUNTER 2022-11-01 18:00 | Outpatient (REF) | payer MEDICAID, SELFPAY ==
[2022-11-01 18:50] LABS: Hemoglobin A1C 10.3 % (<5.7)
[2022-11-01 18:57] LABS: TSH 1.67 uIU/mL (0.36-3.74)
== END 2022-11-01 18:01 | disposition home or self-care (01) ==
LOC: NCHCN 18:00
PROVIDERS: PCP Nurse Practitioner Family; Visit Provider Nurse Practitioner Family
DX: E03.9 Hypothyroidism, unspecified (principal); R73.9 Hyperglycemia, unspecified
CPT/HCPCS: 83036; 84443

== ENCOUNTER 2023-05-06 15:07 | Outpatient (REF) | payer MEDICAID, SELFPAY ==
--- NOTE | 2023-05-06 11:45 | PAPFT_PTH ---
PATIENT: Sonia Lr LOC: [facility] U#:[id number] AGE/SX: 52/F ROOM: RE05/06/[address]: ESTHER PONCE : 1970 BED: DIS: 05/06/2023 SPEC #: [id number] RECD: 05/06/23 18:11 STATUS: JOANNA REQ #: [id number] JEAN: 05/06/23 11:[address]: Esther Ponce DEPT: [facility] Cytology RECD BY: Carolynn Richter Tissues: 1 - CX/ENDOCX FOR PAP SMEARS Procedures: PAP THIN PREP/UVM Screening HPV DNA PROBE Comments: [id number]
[2023-05-06 16:02] LABS: COMMENT (LAB VIEW ONLY) 147.93 mg/dL; Microalb ug/mg Crea 12.3 ug/mg Cr
[2023-05-06 17:02] LABS: ALT 36 U/L (14-59); AST 19 U/L (15-37); Albumin 3.7 g/dL (3.4-5.0); Alkaline Phosphatase 73 U/L (46-116); Anion Gap 9.4 mmol/L (3-11); BUN 17 mg/dL (7-18); Bilirubin, Total 0.5 mg/dL (0.2-1.0); CO2 27.6 mmol/L (21.0-32.0); Calcium 8.8 mg/dL (8.5-10.1); Calculated LDL 80 mg/dL (<100); Chloride 103 mmol/L (98-107); Cholesterol 152 mg/dL (<200); Estimated GFR 67.78 (mL/min/1.73m2); Glucose 113 mg/dL (74-106); HDL Cholesterol 50 mg/dL (40-60); Potassium 4.1 mmol/L (3.5-5.1); Sodium 140 mmol/L (136-145); TSH 2.17 uIU/mL (0.36-3.74); Total Protein 7.3 g/dL (6.4-8.2); Triglyceride 110 mg/dL (<150)
[2023-05-06 17:08] LABS: Hemoglobin A1C 6.2 % (<5.7)
== END 2023-05-06 15:08 | disposition home or self-care (01) ==
LOC: LBN 15:07
PROVIDERS: PCP Nurse Practitioner Family; Visit Provider Nurse Practitioner Family
DX: E03.9 Hypothyroidism, unspecified (principal); E11.9 Type 2 diabetes mellitus without complications; E78.5 Hyperlipidemia, unspecified; Z12.4 Encounter for screening for malignant neoplasm of cervix; Z11.51 Encounter for screening for human papillomavirus (HPV); R87.810 Cervical high risk human papillomavirus (HPV) DNA test positive
CPT/HCPCS: 80053; 80061; 88142; 82043; 82570; 83036; 84443; 87624

== ENCOUNTER → 2023-05-16 02:03 | Outpatient (CLI) | payer MEDICAID, SELFPAY ==
--- NOTE | 2023-05-16 | DI.MAMMO_ITS ---
Exam(s) MAMMO SCREENING EXAM: MAMMO SCREENING CLINICAL HISTORY: SCREENING FOR BREAST CANCER Z12.39 TECHNIQUE: Bilateral full field digital CC and MLO mammographic images were obtained with 3D tomosyn thesis and utilizing computer aided detection (CAD). COMPARISON: Available for comparison. FINDINGS: Masses/Architectural Distortion: None seen. Microcalcifications: No suspicious pleomorphic-type are seen. Skin Thickening/Nipple Retraction: None. IMPRESSION: 1. No significant interval change with no specific features of malignancy noted. 2. Unless there is more urgent need, screening mammography is recommended, as per [place] [employer] guidelines. BI-RADS Category 1 - Negative Breast Density - Category A - Almost entirely fatty Breast density category C or D implies that the patient has dense breast tissue. Dense breast tissue is very common and is not abnormal but dense breast tissue can make it harder to find cancer on a ma mmogram. Also, dense breast tissue may increase their breast cancer risk. This information about the result of the mammogram report was provided to the patient to raise their awareness. Use this report when you speak with the patient about their risks for breast cancer, which includes their family hist ory. At that time, you may recommend for more screening tests (Ultrasound or MRI) as they might be us eful based on their risk. A negative radiographic report should not delay biopsy if a dominant or clinically suspicious mass is present. Up to ten percent of cancers are not identified on mammography. A negative report may reinforce clinical impression. Adenosis and dense breasts may obscure an underlying neoplasm. False positive reports average 6 to 10%. Patient will receive a letter notifying them of these results.
== END ==
PROVIDERS: PCP Nurse Practitioner Family; Visit Provider Nurse Practitioner Family
DX: Z12.31 Encounter for screening mammogram for malignant neoplasm of breast (principal)
CPT/HCPCS: 77063; 77067

== ENCOUNTER 2023-05-30 09:16 | Outpatient (REF) | payer MEDICAID, SELFPAY ==
--- NOTE | 2023-05-30 09:00 | ENDO_PTH ---
PATIENT: Sonia Lr LOC: [facility] U#:[id number] AGE/SX: 52/F ROOM: RE05/30/[address]: Cecily Wood : 1970 BED: DIS: 05/30/2023 SPEC #: [id number] RECD: 05/30/23 12:31 STATUS: JOANNA REQ #: [id number] JEAN: 05/30/23 09:[address]: Cecily Wood DEPT: Surgical Specimen RECD BY: Carolynn Richter ENTERED: 05/30/23 12:31 SP TYPE: Endo OTHR DR: WADE SANCHEZ Tissues: 1 - ENDOCERVICAL BX/CURRETTE Procedures: GROSS AND MICRO LEVEL 4 Comments: [id number]
== END 2023-05-30 09:17 | disposition home or self-care (01) ==
LOC: LBN 09:16
PROVIDERS: PCP Nurse Practitioner Family; Visit Provider Obstetrics & Gynecology Gynecology
DX: R87.610 Atypical squamous cells of undetermined significance on cytologic smear of cervix (ASC-US) (principal); Z87.42 Personal history of other diseases of the female genital tract
CPT/HCPCS: 88305

== ENCOUNTER → 2023-09-09 02:13 | Outpatient (CLI) | payer MEDICAID, SELFPAY ==
--- NOTE | 2023-09-09 12:17 | DI.RAD_ITS ---
Exam(s) XR HIP LT COMPLETE AP PELVIS EXAM: XR HIP LT COMPLETE AP PELVIS CLINICAL HISTORY: LT HIP PAIN, M25.552. TECHNIQUE: 2D digital imaging was performed. Three views. COMPARISON: CR,XR XR HIP LT COMPLETE AP PELVIS from 07/11/2022 FINDINGS: BONES: No acute fracture is present. No bony destructive lesion is seen. Mild spurring at greater t rochanters. JOINTS: No dislocation present. Hip joint spaces are maintained. Spurring at inferior SI joints. SOFT TISSUE: Normal. IMPRESSION: Mild degenerative changes. DATA REPOSITORY: RADIATION DOSE DELIVERED:
== END ==
PROVIDERS: PCP Nurse Practitioner Family; Visit Provider Physician Assistant Medical
DX: M25.552 Pain in left hip (principal)
CPT/HCPCS: 73502

== ENCOUNTER 2023-10-28 07:20 | Day surgery (SDC) | payer MEDICAID, SELFPAY ==
--- NOTE | 2023-10-27 17:05 | W.ANESPRE ---
General Info Date of Service Date Performed: 10/28/23 Height: 5 ft 10 in Weight: 122.47 kg Body Mass Index (BMI): 38.7 Surgical Procedure: Operation Date: 10/28/23 09:05 Proposed Procedure Side Surgeon p Colonoscopy Asad Kidd MD Meds Allergies and Home Medications Allergies Allergy/AdvReac Type Severity Reaction Status Date / Time quetiapine [From Seroquel] Allergy Unknown Psychosis Verified 10/28/23 07:40 animal dander AdvReac Mild runny nose Verified 10/28/23 07:40 Home Medication Medication Instructions Recorded atorvastatin 40 mg tablet 40 mg PO DAILY 10/21/21 buspirone 15 mg tablet 30 mg PO BID 09/25/22 nystatin 100,000 unit/gram topical 1 applic topical BID 09/25/22 cream metformin 1,000 mg tablet 1,000 mg PO BID 01/01/23 amitriptyline 25 mg tablet 200 mg PO HS 04/15/23 bisacodyl 5 mg tablet,delayed 5 mg PO ONCE Colonoscopy Bowel 10/10/23 release (Dulcolax (bisacodyl)) Prep #4 tabs lorazepam 1 mg tablet 1 mg PO QHS PRN 10/10/23 polyethylene glycol 3350 17 238 g PO ONCE Colonoscopy Bowel 10/10/23 gram/dose oral powder Prep #238 grams Current Visit Medications: Current Medications Generic Name Dose Route Start Last Admin Trade Name Freq PRN Reason Stop Dose Admin Ringer's Solution 1,000 mls @ 80 mls/hr 10/28/23 06:00 IV 11/24/23 23:59 INFUSION JAIDA IV Miscellaneous Supplies 1 each 10/28/23 06:00 Iv Access IV 11/24/23 23:59 DIRECTED JAIDA Sodium Chloride 0 ml 10/28/23 06:00 Normal Saline Flush 10 Ml Syr IV 11/24/23 23:59 PRN PRN Sodium Chloride 0 ml 10/28/23 06:00 Normal Saline 10 Ml Vial IJ 11/24/23 23:59 DIRECTED PRN Sterile Water 0 ml 10/28/23 06:00 Water,Injection,Sterile 10 Ml Vial IJ 11/24/23 23:59 DIRECTED PRN PFSH Active Problems Active Problems: Problem Status Onset Code 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 Thyroid disorder 11/30/16 E07.9 Migraine G43.909 Post-traumatic stress F43.10 Depression F32.A Sleep disorder G47.9 Muscle spasm M62.838 Fatigue R53.83 Hyperlipidemia E78.5 Dysuria R30.0 Bladder pain R39.89 Urinary hesitancy R39.11 Gross hematuria R31.0 Panic attack F41.0 Atypical chest pain R07.89 Superficial thrombophlebitis I80.9 Superficial thrombophlebitis of left leg I80.02 Hypercholesterolemia E78.00 Hypothyroidism Anxiety Tobacco Smoking/Tobacco Use Status: Never Alcohol Alcohol Intake: never Substance Use Substance use type: does not use Vital Signs and Lab Results Vital Signs Most Recent Vital Signs in EMR: Temp Pulse Resp BP Pulse Ox 36.2 C L 94 H 18 160/93 H 99 10/28/23 07:42 10/28/23 07:42 10/28/23 07:42 10/28/23 07:42 10/28/23 07:42 Lab Results Blood Type / Crossmatch: No Data to Display Complete Blood Count: No Data to Display Complete Metabolic Panel: No Data to Display Liver Function Panel: No Data to Display Coagulation Panel: No Data to Display Cardiac Panel: No Data to Display Arterial Blood Gas: No Data to Display Venous Blood Gas: No Data to Display Pancreas Panel: No Data to Display Thyroid Panel: No Data to Display Infectious Disease: No Data to Display Blood Cultures: No Data to Display Toxicology Panel: No Data to Display Panel: No Data to Display Imaging and Studies Imaging and Studies Study information below may be from another EMR and interpreted by another provider. Please see original notes in EMR for more complete details. EKG Summary: 04/15: sinus lorne. Anesthesia Assessment and Plan Anesthesia History Personal History: No History of Anesthesia Complications Family History: No Family History of Anesthesia Complications Exercise Tolerance Exercise Tolerance: Metabolic Equivalents>4 Cardiac & Pulmonary Exam Cardiac Exam: Normal S1/S2 Heart Sounds Pulmonary Exam: Clear Bilateral Breath Sounds Implantable Cardiac Device Does patient have a Pacemaker or an ICD?: No Airway Exam Known Difficult Airway: No Mallampati Class: 4 Mouth Opening: Narrow (< 3cm) Thyromental Distance: Greater than 3 cm Neck Range of Motion: Limited ROM Neck Circumference: Thick Teeth Condition: Normal Dentition ASA Classification ASA Score: ASA 3 Emergency Case?: No NPO Status NPO Status: NPO Clears >2 hours, Solids >8 hours Status Status: Not Relevant due to Medical History Anesthesia Plan Resuscitation Status: Full Code Anesthesia Technique: General Anesthesia Airway Planned: Natural Airway Monitors Used: Standard Monitors Preoperative Comments:: 53 yo female for colo. Sig PMHx: hypothyroid (on replacement), DVT (after ), PTS/depression/anxiety (very nervous today), never smoker.
[2023-10-28 07:42] VITALS: BP 160/93; PULSE 94; RESP 18; TEMP 36.2; O2SAT 99
[2023-10-28] MEDS: Lactated Ringers 1,000 ML 80 ML IV (08:07)
[2023-10-28 08:17] VITALS: BMI 38.7
--- NOTE | 2023-10-28 08:50 | W.COLOREPORT ---
Date of service: 10/28/23 Time of Service: 08:50 Colonoscopy Report Procedure Description: PROCEDURES PERFORMED: 1. Colonoscopy with hot snare polypectomy x1 2. Cold forceps polypectomy x 1 PREOPERATIVE DIAGNOSIS: Screening colonoscopy POSTOPERATIVE DIAGNOSIS: Diverticulosis, colorectal polyps SURGEON: Saranya Kidd MD INDICATION for procedure: The patient is a 53-year-old woman due for her for screening colonoscopy. No family history of colon cancer. No symptoms. FINDINGS: Scattered diverticular changes mostly in the sigmoid colon but a couple were seen in the transverse colon. A pedunculated 15-18 mm polyp was removed from the sigmoid colon with hot snare technique. It was removed with a clean cut at the base in 1 piece. Scattered, flat hyperplastic?appearing rectal polyps are present. 1 is removed with cold forcep technique to confirm benign histology. SURVEILLANCE interval/FOLLOW-UP: 3 years. Sooner if any dysplasia present (not suspected) in the sigmoid polyp. SPECIMENS: yes EBL: Minimal COMPLICATIONS: None QUALITY of prep: Excellent Procedure in detail: The patient gave written consent and was in agreement with the indications, the potential risks as well as the benefits of the procedure. She was taken to the endoscopy suite and laid in the left lateral decubitus position. A timeout was performed and anesthesia was administered which was tolerated well. I started the procedure. Digital rectal and visual examination was performed and grossly within normal limits. A well-lubricated flexible colonoscope was then introduced and passed without any notable difficulty all the way to the cecum identified by the ileocecal valve and the appendiceal orifice. The scope was then slowly withdrawn with the above-noted findings. The patient tolerated the procedure well and was taken to the PACU in hemodynamically stable condition.
--- NOTE | 2023-10-28 08:51 | W.PM.DSUDISC ---
Date of service: 10/28/23 Time of Service: 08:51 Discharge Plan Disposition Patient Disposition: Home Condition: Good Discharge Details Attending Provider: Asad Kidd Primary Care Provider: Esther Ponce Home Meds and New Rx's Prescriptions: No Action metformin 1,000 mg tablet 1,000 mg PO BID lorazepam 1 mg tablet 1 mg PO QHS PRN bisacodyl [Dulcolax (bisacodyl)] 5 mg tablet,delayed release (DR/EC) 5 mg PO ONCE Qty: 4 0RF Rx Instructions: Colonoscopy Bowel Prep- Per Instructions polyethylene glycol 3350 17 gram/dose powder 238 g PO ONCE Qty: 238 0RF Rx Instructions: Colonoscopy Bowel Prep- Per Instructions nystatin 100,000 unit/gram cream 1 applic topical BID buspirone 15 mg tablet 30 mg PO BID amitriptyline 25 mg tablet 200 mg PO HS atorvastatin 40 mg tablet 40 mg PO DAILY Patient Comments: TAKE ONE TABLET BY MOUTH EVERY DAY Discharge Instructions Additional Instructions: FINDINGS: A couple of polyps were found and removed from your colon today. This is why we do the colonoscopy. They are nothing to worry about. They will get checked under a microscope routinely. You need to repeat another colonoscopy in 3 years. Separately, mild diverticular disease was found in your colon. This is extremely common, benign and nothing needs to be done about it. Activity:: Activity as Tolerated Diet:: As Tolerated
--- NOTE | 2023-10-28 09:25 | BOWEL_PTH ---
PATIENT: Sonia Lr LOC: [facility] U#:[id number] AGE/SX: 53/F ROOM: RE10/28/[address]: Asad Kidd : 1970 BED: DIS: 10/28/2023 SPEC #: [id number] RECD: 10/28/23 12:47 STATUS: JOANNA REQ #: [id number] JEAN: 10/28/23 09:[address]: Asad Kidd DEPT: Surgical Specimen RECD BY: Carolynn Richter ENTERED: 10/28/23 12:47 SP TYPE: Bowel OTHR DR: WADE SANCHEZ Tissues: 1 - BIOPSY BOWEL 2 - BIOPSY BOWEL Procedures: GROSS AND MICRO LEVEL 4 Comments: [id number]
[2023-10-28 09:34] VITALS: BP 112/67; PULSE 84; RESP 16; TEMP 36.2; O2SAT 94
--- NOTE | 2023-10-28 10:01 | W.ANESPOSTOP ---
Postoperative Evaluation Date, Time and Location Date Performed: 10/28/23 Time Performed: 09:40 Patient Location: Day Surgery Unit Vital Signs Most Recent Imported Vital Signs: Most Recent Vital Signs Temp Pulse Resp BP Pulse Ox 36.2 C L 84 16 112/67 94 10/28/23 09:34 10/28/23 09:34 10/28/23 09:34 10/28/23 09:34 10/28/23 09:34 Pain Score Most Recent Pain Score: Most Recent Pain Score Pain Level 0 10/28/23 09:34 Assessment Mental Status: Awake (Alert & Oriented to Patient Baseline) Airway and Respiratory Function: Patent airway with normal (patient baseline) respiratory exam Cardiovascular Function: Hemodynamically Stable Hydration Status: Adequately Hydrated Nausea & Vomiting: No Nausea or Vomiting Pain: Pt. Denies Any Pain Peripheral Nerve Block: Patient did not receive a nerve block
[2023-10-28 10:05] VITALS: BP 123/66; PULSE 80; RESP 18; TEMP 36.5; O2SAT 96
== END 2023-10-28 10:25 | disposition home or self-care (01) ==
PROVIDERS: PCP Nurse Practitioner Family; Visit Provider Student in an Organized Health Care Education/Training Program
PROC: 0DJD8ZZ Inspection of Lower Intestinal Tract, Via Natural or Artificial Opening Endoscopic (ICD-10-PCS; CPT 45378; principal; 2023-10-28 09:00)
DX: Z12.11 Encounter for screening for malignant neoplasm of colon (principal); D37.4 Neoplasm of uncertain behavior of colon; K57.30 Diverticulosis of large intestine without perforation or abscess without bleeding
CPT/HCPCS: 45385; 45380; 00123; 88305; J2405; J2704

== ENCOUNTER 2023-12-17 10:24 | Outpatient (REF) | payer MEDICAID, SELFPAY ==
--- NOTE | 2023-12-17 09:45 | PAPFT_PTH ---
PATIENT: Sonia Lr LOC: [facility] #:[id number] AGE/SX: 53/F ROOM: RE12/17/[address]: Cecily Wood : 1970 BED: DIS: 12/17/2023 SPEC #: [id number] RECD: 12/17/23 12:44 STATUS: JOANNA MCKEON #: [id number] JEAN: 12/17/23 09:[address]: Cecily Wood DEPT: [facility] Cytology RECD BY: Carolynn Richter ENTERED: 12/17/23 12:45 SP TYPE: PAPFT OTHR DR: WADE SANCHEZ Tissues: 1 - CX/ENDOCX FOR PAP SMEARS Procedures: PAP THIN PREP/UVM Screening HPV DNA PROBE Comments: [id number]
== END 2023-12-17 10:25 | disposition home or self-care (01) ==
LOC: LBN 10:24
PROVIDERS: PCP Nurse Practitioner Family; Visit Provider Obstetrics & Gynecology Gynecology
DX: Z12.4 Encounter for screening for malignant neoplasm of cervix (principal); D26.0 Other benign neoplasm of cervix uteri
CPT/HCPCS: 88142; 87624

== ENCOUNTER 2023-12-26 14:42 | Outpatient (REF) | payer MEDICAID, SELFPAY ==
[2023-12-26 15:38] LABS: Abs Immature Grans 0.01 10^3/uL (0.0-0.06); Absolute Basophil Count 0.08 10^3/uL (0.0-0.2); Absolute Eosinophil Count 0.21 10^3/uL (0.0-0.7); Absolute Lymphocyte Count 2.17 10^3/uL (1.2-3.4); Absolute Monocyte Count 0.59 10^3/uL (0.1-0.8); Absolute Neutrophil Count 3.21 10^3/uL (1.2-6.7); Basophils % 1.3 %; Eosinophils % 3.3 %; HCT 40.4 % (36.0-46.0); HGB 13.5 g/dL (11.2-15.7); Immature Grans % 0.2 %; Lymphocytes % 34.6 %; MCH 29.5 pg (27.0-33.0); MCHC 33.4 % (32.0-36.0); MCV 88 fL (80-95); Monocytes % 9.4 %; Neutrophils % 51.2 %; Platelet Count 246 10^3/uL (130-400); RBC 4.58 10^6/uL (3.93-5.22); RDW 12.8 % (11.7-14.6); RDW-SD 41.1 fL; WBC 6.27 10^3/uL (4.4-10.8)
[2023-12-26 16:17] LABS: Hemoglobin A1C 6.3 % (<5.7)
[2023-12-26 16:27] LABS: ALT 36 U/L (14-59); AST 17 U/L (15-37); Albumin 3.7 g/dL (3.4-5.0); Alkaline Phosphatase 87 U/L (46-116); Anion Gap 9.5 mmol/L (3-11); BUN 11 mg/dL (7-18); Bilirubin, Total 0.3 mg/dL (0.2-1.0); CO2 29.5 mmol/L (21.0-32.0); Calcium 9.1 mg/dL (8.5-10.1); Chloride 106 mmol/L (98-107); Estimated GFR 67.36 (mL/min/1.73m2); Folate 10.2 ng/mL (8.6-20.0); Glucose 106 mg/dL (74-106); Potassium 4.4 mmol/L (3.5-5.1); Sodium 145 mmol/L (136-145); Total Protein 6.4 g/dL (6.4-8.2); Vitamin B12 265 pg/mL (193-986)
[2023-12-26 16:50] LABS: FREE T4 1.12 ng/dL (0.76-1.46)
[2023-12-26 18:34] LABS: Vitamin D 25 Total 14.1 ng/mL (30-100)
== END 2023-12-26 14:43 | disposition home or self-care (01) ==
LOC: NCHCN 14:42
PROVIDERS: PCP Nurse Practitioner Family; Visit Provider Nurse Practitioner Family
DX: E11.9 Type 2 diabetes mellitus without complications (principal); E03.9 Hypothyroidism, unspecified; R53.83 Other fatigue; E55.9 Vitamin D deficiency, unspecified; Z79.899 Other long term (current) drug therapy
CPT/HCPCS: 80053; 82306; 82607; 82746; 83036; 84439; 84443; 85025

== ENCOUNTER 2024-03-31 03:21 | Outpatient (CLI) | payer MEDICAID, SELFPAY ==
--- NOTE | 2024-03-31 10:46 | W.NUTRFU ---
Date of service: 03/31/24 Time of Service: 09:30 Nutrition Note NOTE: Sonia comes in for help with weight mgt and also guidance with glucose mgt - takes metformin BID 500mg. She describes a yo-yo pattern of significant weight loss and weight gain rebound - lost 120lbs in her 20's and gained a significant amount back before losing a 100lbs again along with her daughter as a team effort. In february at her provider's office she was 301lbs and 70.4 with a BMI of 42.6 No current nutrition supplements. Pt seems to be very wary of fat in her diet - seems to link fat to getting fat and tends to fall for the low fat claim on food items. We reviewed recommendations for 2200kcal diet for her first target and broke this down into 220g carbs 100g protein and 73g fat for the purposes of tracking and referencing (like googling 2200 calorie sample menu for weight loss). Also pointed to [employer] for meal planning where she can input her ranges and get menus generated. We looked at some examples and resources. We looked at eating more often and targeting morning and daylight hours for bulk of her kcals - suggested limiting most meals and snacks to just 2-3 menus for periods of time to get into auto-regional airline pilot mode and not have to make too many decisions in regards to food - or stress out about it either. We made follow up appt for sept as Sonia would like to continue to get support regularly during her planning and early action stages. Time Spent in Nutritional Counseling and Treatment: 40min
== END 2024-03-31 03:22 | disposition home or self-care (01) ==
LOC: DS 03:21
PROVIDERS: Visit Provider Dietitian, Registered
DX: E11.9 Type 2 diabetes mellitus without complications (principal)
CPT/HCPCS: 00123; 97802

== ENCOUNTER 2024-06-09 16:06 | Outpatient (REF) | payer MEDICAID, SELFPAY ==
[2024-06-09 19:42] LABS: Bilirubin Negative (Negative); Blood Moderate (Negative); Clarity Cloudy (Clear); Glucose Negative (Negative); Ketones Negative (Negative); Leukocyte Esterase Large (Negative); Nitrite Negative (Negative); Specific Gravity 1.015 (1.005-1.025); Urobilinogen 0.2 mg/dL (Up to 0.2)
[2024-06-09 19:53] LABS: C & S Indicated? Yes; WBC >50 HPF (0-5)
== END 2024-06-09 16:07 | disposition home or self-care (01) ==
LOC: NCHCN 16:06
PROVIDERS: Visit Provider Nurse Practitioner Family
DX: R30.0 Dysuria (principal); B96.29 Other Escherichia coli [E. coli] as the cause of diseases classified elsewhere; R82.89 Other abnormal findings on cytological and histological examination of urine
CPT/HCPCS: 87077; 81003; 81015; 87086; 87186

== ENCOUNTER 2024-11-30 15:43 | Outpatient (REF) | payer OTHER, MEDICAID, SELFPAY | END 2024-11-30 15:44 | disposition home or self-care (01) | LOC: LBN 15:43 | PROVIDERS: Visit Provider Nurse Practitioner Family | DX: N30.01 Acute cystitis with hematuria (principal) | CPT/HCPCS: 87077; 87086; 87186 ==

== ENCOUNTER 2025-01-06 09:11 | Outpatient (REF) | payer MEDICAID, SELFPAY ==
[2025-01-06 16:47] LABS: COMMENT (LAB VIEW ONLY) 68.45 mg/dL; Microalb ug/mg Crea 16.5 ug/mg Cr
[2025-01-06 18:37] LABS: TSH 4.07 uIU/mL (0.36-3.74)
[2025-01-06 19:36] LABS: FREE T4 1.05 ng/dL (0.76-1.46)
== END 2025-01-06 09:12 | disposition home or self-care (01) ==
LOC: NCHCN 09:11
PROVIDERS: Visit Provider Student in an Organized Health Care Education/Training Program
DX: E03.9 Hypothyroidism, unspecified (principal); E11.9 Type 2 diabetes mellitus without complications; F41.9 Anxiety disorder, unspecified
CPT/HCPCS: 80346; 82043; 82570; 84439; 84443

== ENCOUNTER 2025-03-19 00:24 | Outpatient (CLI) | payer OTHER, SELFPAY ==
--- NOTE | 2025-03-19 07:00 | DI.RAD_ITS ---
Exam(s) XR KNEE RT 3V AP,LAT,JEFF EXAM: XR KNEE RT 3V AP,LAT,JEFF CLINICAL HISTORY: rt knee pain,m25.561. TECHNIQUE: 2D digital imaging was performed. Three views. COMPARISON: No exams were available for comparison FINDINGS: BONES: No acute fracture is present. No bony destructive lesion is seen. Patellar enthesophytes. There is some blunting of the tibial spines. JOINTS: Mild narrowing of the lateral femoral tibial joint space which shows periarticular spurring. There is abnormal anterior subluxation of the tibia with respect to the distal femur which could indicate a ACL tear.. No joint effusion is seen. SOFT TISSUE: Normal. 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 Anterior subluxation of the tibia. DATA REPOSITORY: RADIATION DOSE DELIVERED:
--- NOTE | 2025-03-19 07:00 | DI.RAD_ITS ---
Exam(s) XR SHOULDER LT COMPLETE 2+V EXAM: XR SHOULDER LT COMPLETE 2+V CLINICAL HISTORY: evaluate pathology,lt shoulder pain, m25.512. TECHNIQUE: 2D digital imaging was performed. Three views. COMPARISON: CR LEFT SHOULDER COMPLETE from 11/20/2011 FINDINGS: BONES: No acute fracture is present. No bony destructive lesion is seen. JOINTS: No dislocation present. There is mild spurring at the AC joint and undersurface of the acromion. There is also spurring at the glenoid. The glenohumeral joint space is maintained. There is spurring at the greater tuberosity. SOFT TISSUE: Normal. IMPRESSION: Mild degenerative changes of the left shoulder. DATA REPOSITORY: RADIATION DOSE DELIVERED:
== END 2025-03-19 00:44 ==
LOC: DI 00:24
PROVIDERS: PCP Student in an Organized Health Care Education/Training Program; Visit Provider Nurse Practitioner Family
DX: M25.561 Pain in right knee (principal); M25.512 Pain in left shoulder
CPT/HCPCS: 73562; 73030

== ENCOUNTER 2025-07-26 12:37 | Emergency (ER) | payer OTHER, SELFPAY ==
[2025-07-26] VITALS (16 sets, daily range): BP systolic 148–171; BP diastolic 82–120; PULSE 76–89; RESP 10–22; TEMP 36–36.6; O2SAT 96–100
--- NOTE | 2025-07-26 13:00 | DI.CT_ITS ---
Exam(s) CT HEAD WO EXAM: CT HEAD WO CLINICAL HISTORY: Headache. TECHNIQUE: Imaging Protocol: Axial computed tomography images with coronal and sagittal reformatted images were created and reviewed COMPARISON: CT SINUS CT WITHOUT CONTRAST from 12/31/2014 FINDINGS: Ventricles and Extra axial spaces: Normal in size and morphology for the patient's age. Hemorrhage: None. Cerebral parenchyma: There is no evidence of an acute territorial infarct. Midline shift: None. Brainstem/Cerebellum: Normal. Calvarium: Normal. Visualized Paranasal sinuses/Mastoids: Clear. Soft Tissues: Unremarkable. IMPRESSION: No acute intracranial process. RADIATION DOSE DELIVERED: 845.18mGy.cm Total DLP DATA REPOSITORY: All CT scans at this facility are submitted to the National Radiology Data Registry (NRDR) Dose Index Registry (DIR) with the [employer] (ACR). RADIATION OPTIMIZATION: All CT scans at this facility use at least one of these dose optimization techniques: automated exposure control; mA and/or kV adjustment per patient size (includes targeted exams where dose is matched to clinical indication); or iterative reconstruction.
--- NOTE | 2025-07-26 13:01 | W.ED.GENAD ---
Discharge Plan Disposition Patient Disposition: Home Condition: Stable Discharge Details Clinical Impression: Headache, Anxiety Primary Care Provider: Jessenia Chaudhary ED Provider: Lela Bowen Home Meds and New Rx's Prescriptions: Continued metformin 1,000 mg tablet 1,000 mg PO BID lorazepam 1 mg tablet 1 mg PO QHS PRN diclofenac sodium [Arthritis Pain (diclofenac)] 1 % gel 2 g topical QID Rx Instructions: apply to single elbow, wrist or hand; for hand includes palm/fingers/back of hand desvenlafaxine succinate 50 mg tablet extended release 24 hr 50 mg PO DAILY levothyroxine 112 mcg capsule 112 mcg PO DAILY cholecalciferol (vitamin D3) 325 mcg (13,000 unit) capsule 325 mcg PO QWEEK nystatin 100,000 unit/gram cream 1 applic topical BID buspirone 15 mg tablet 30 mg PO BID amitriptyline 25 mg tablet 200 mg PO HS atorvastatin 40 mg tablet 40 mg PO DAILY Patient Comments: TAKE ONE TABLET BY MOUTH EVERY DAY Discharge Instructions Instructions: Headache, Adult ED, Anxiety, Adult ED Additional Instructions: At this time head CT has been normal limits. Your labs also showed no evidence of electrolyte abnormality or infection. Follow up with primary care provider in 3-5 days. Return to ED sooner if any worsening or concerns. Please take Tylenol or Ibuprofen with food every 4-6 hours as needed for pain and swelling. Crease oral fluids. You may also take Benadryl if this seems to help. You for allowing us to care for you today. Stand Alone Forms: Portal Information Referrals: Jessenia Chaudhary MD [Primary Care Provider, Medicine] - 5 days Referral Note: ER follow-up, call for appointment Clinical Impression: Headache HPI General Mode of arrival: ambulatory. Date/Time Provider Initiated Documentation: 07/26/25 12:55. Limitations to Documentation: no limitations. Information obtained by: patient, RN notes reviewed and old records reviewed. HPI Narrative: 55-year-old female to the ER with a chief complaint of headache x 7 days accompanied by anxiety. She does report runny nose, slight blurry vision she reports that it feels like her brain is wrapped in Saran wrap. No significant focal motor neurodeficits however she does report some hand tingling. She is tearful upon arrival, ANO x 4 she is sensitive to light and sound. Denies any known recent head injuries. She is hypertensive upon arrival with no history of blood pressure. She did take Tylenol and ibuprofen prior to arrival with no relief. Patient does have a history of migraines, anxiety, hyperlipidemia, hypothyroidism. Obesity Related Data Home Medications ?Medication ?Instructions ?Recorded ?Confirmed atorvastatin 40 mg tablet 40 mg PO DAILY 10/21/21 07/26/25 buspirone 15 mg tablet 30 mg PO BID 09/25/22 07/26/25 nystatin 100,000 unit/gram topical 1 applic topical BID 09/25/22 07/26/25 cream metformin 1,000 mg tablet 1,000 mg PO BID 01/01/23 07/26/25 amitriptyline 25 mg tablet 200 mg PO HS 04/15/23 07/26/25 lorazepam 1 mg tablet 1 mg PO QHS PRN 10/10/23 07/26/25 cholecalciferol (vitamin D3) 325 325 mcg PO QWEEK 03/12/25 07/26/25 mcg (13,000 unit) capsule desvenlafaxine succinate 50 mg 50 mg PO DAILY 03/12/25 07/26/25 tablet,extended release 24 hr diclofenac sodium 1 % topical gel 2 g topical QID 03/12/25 07/26/25 (Arthritis Pain (diclofenac)) levothyroxine 112 mcg capsule 112 mcg PO DAILY 03/12/25 07/26/25 Allergies Allergy/AdvReac Type Severity Reaction Status Date / Time quetiapine (From Seroquel) Allergy Unknown Psychosis Verified 07/26/25 12:42 animal dander AdvReac Mild runny nose Verified 07/26/25 12:42 General Stated Complaint: Headache CARLOS: 3 Review of Systems All systems reviewed & are unremarkable except as noted in HPI and below Constitutional Constitutional: Reports as per HPI, Denies fever(s) and Reports headache(s) ENT Ears, Nose, Mouth, and Throat: Reports headache(s) Cardiovascular Cardiovascular: Denies chest pain and Denies dyspnea Respiratory Respiratory: Denies dyspnea Gastrointestinal Gastrointestinal: Denies abdominal pain, Denies diarrhea, Reports nausea and Denies vomiting Neurologic Neurologic: Reports headache(s) Psychiatric Psychiatric: Reports anxiety Exam Narrative Exam Narrative: Constitutional: Alert and oriented x3. Appears stated age. Obese body habitus. Tearful, appears anxious. Head: Normocephalic, no trauma. Eyes: Pupils PERRL, Red reflex noted, EOM's intact. Eyelids symmetrical without lesions, discharge, or swelling. ENT: Bilateral TM's WNL, External ear normal to inspection, no mastoid TTP, swelling, or erythema, Nasal turbinates WNL, no nasal discharge. Normal dentition, Posterior pharynx WNL, no exudate. Chest: RRR, Normal S1, S2, distal pulses intact. Resp: Lungs clear to auscultation bilaterally, no wheezes, rales, or rhonchi. Abdomen: Soft, non-distended, Normoactive bowel sounds all 4 quads. Musculoskeletal: Normal gait, Moves all 4 extremities without difficulty. Skin: No suspicious rashes or lesions. Capillary refill less than 2 sec. Neurologic: Cranial nerves II-XII intact. Alert and oriented x 3. Motor: No deficits noted. Sensory: Intact bilaterally all 4 extremities. Hematologic/Lymphatic: No ecchymosis, no lymphadenopathy. Course Vital Signs Vital signs: Vital Signs Temperature 36.6 C 07/26/25 12:38 Pulse 89 07/26/25 12:38 Respiratory Rate 18 07/26/25 12:38 Blood Pressure 165/107 H 07/26/25 12:38 Pulse Oximetry 98 07/26/25 12:38 Temperature 36.6 C 07/26/25 12:38 Pulse 89 07/26/25 12:38 Respiratory Rate 18 07/26/25 12:38 Blood Pressure 165/107 H 07/26/25 12:38 Pulse Oximetry 98 07/26/25 12:38 Pain Level 9 07/26/25 12:38 Medical Decision Making 55-year-old female to the ER with a chief complaint of headache x 7 days accompanied by anxiety. She does report runny nose, slight blurry vision she reports that it feels like her brain is wrapped in Saran wrap. No significant focal motor neurodeficits however she does report some hand tingling. She is tearful upon arrival, ANO x 4 she is sensitive to light and sound. Denies any known recent head injuries. She is hypertensive upon arrival with no history of blood pressure. She did take Tylenol and ibuprofen prior to arrival with no relief. Patient does have a history of migraines, anxiety, hyperlipidemia, hypothyroidism. Obesity Head CT ordered, CMP Compazine and a liter of Benadryl. Will consider Toradol ibuprofen or similar after CT. 1449: Patient reevaluation she reports feeling much better. Discussed CT results with her blood pressure is much improved. She would like to be discharged. Patient does have anxiety medication at home that she will take if needed. This text was generated using [employer]oopay[employer] system, please disregard any oddities of phrase or misspellings. Medical Records Medical records reviewed: Yes I reviewed the patient's medical records. Lab Data Lab results reviewed: Yes I reviewed the patient's lab results. Lab results narrative: Laboratory Tests Range/Units 07/26/25 07/26/25 13:22 13:42 WBC (4.4-10.8) 10^3/uL 6.19 RBC (3.93-5.22) 10^6/uL 4.55 Hgb (11.2-15.7) g/dL 13.0 Hct (36.0-46.0) % 39.9 MCV (80-95) fL 88 MCH (27.0-33.0) pg 28.6 MCHC (32.0-36.0) % 32.6 RDW (11.7-14.6) % 12.6 Plt Count (130-400) 10^3/uL 263 MPV (8.0-11.0) fL 9.4 Immature Gran % % 0.3 Neutrophils % % 51.5 Lymphocytes % % 31.8 Monocytes % % 11.3 Eosinophils % % 3.6 Basophils % % 1.5 Nucleated RBC % (0.0-0.3) % 0.0 Absolute Neutrophils (1.2-6.7) 10^3/uL 3.19 Absolute Lymphocytes (1.2-3.4) 10^3/uL 1.97 Absolute Monocytes (0.1-0.8) 10^3/uL 0.70 Absolute Eosinophils (0.0-0.7) 10^3/uL 0.22 Absolute Basophils (0.0-0.2) 10^3/uL 0.09 Sodium (136-145) mmol/L 139 Potassium (3.5-5.1) mmol/L 4.1 Chloride (98-107) mmol/L 103 Carbon Dioxide (20.0-31.0) mmol/L 30.0 Anion Gap (3-11) mmol/L 6 BUN (9-23) mg/dL 13 Creatinine (0.55-1.02) mg/dL 0.89 Est GFR (CKD-EPI 2020) (mL/min/1.73m2) 65.82 Glucose (74-106) mg/dL 93 Calcium (8.3-10.6) mg/dL 9.0 Total Bilirubin (0.2-1.2) mg/dL 0.50 AST (<34) U/L 22 ALT (10-49) U/L 36 Alkaline Phosphatase (46-116) U/L 76 Total Protein (5.7-8.2) g/dL 6.8 Albumin (3.2-5.0) g/dL 4.3 Urine Color (Yellow) Yellow Urine Clarity (Clear) Sl Cloudy Urine pH (5-8) 7.0 Ur Specific [place] (1.005-1.025) 1.020 Urine Protein (Neg-Trace) mg/dL Negative Urine Ketones (Negative) mg/dL Negative Urine Blood (Negative) Negative Urine Nitrite (Negative) Negative Urine Bilirubin (Negative) Negative Urine Urobilinogen (Up to 0.2) mg/dL 0.2 Ur Leukocyte Esterase (Negative) Small H Urine RBC (0-2) HPF Negative Urine WBC (0-5) HPF 3-5 Ur Epithelial Cells (Negative) HPF Moderate Urine Crystals (Negative) HPF Negative Urine Bacteria (Negative) HPF Few Urine Casts (Negative) LPF Negative Urine Mucus (Negative) Negative Ur Culture Indicated? No Urine Glucose (Negative) mg/dL Negative PFSH All Active Problems (Updated 07/26/25 @ 14:50 by Lela Bowen NP) Anxiety (Chronic) Headache (Acute) Pap smear abnormality of cervix (Acute) 2022. + HR HPV. 11/2023: Nl Pap/Neg HPV. 3yr f/u recommended. 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 Nl Pap/+ HPV. Colpo Bx: mild atypia no dysplasia squamous cells. plan repeat Pap/HPV in 6mo. Thyroid disorder (Acute 11/30/16) Migraine (Chronic) Post-traumatic stress (Acute) Depression (Chronic) Sleep disorder (Acute) Muscle spasm (Acute) Fatigue (Acute) Hyperlipidemia (Acute) Dysuria (Acute) Bladder pain (Acute) Urinary hesitancy (Acute) Gross hematuria (Acute) Panic attack (Acute) Atypical chest pain (Acute) Superficial thrombophlebitis (Acute) Superficial thrombophlebitis of left leg (Acute) Hypercholesterolemia (Chronic) Hypothyroidism (Chronic) Anxiety (Acute) Surgical History History of colonoscopy (~10/2023) path sent Family History Mother Diabetes Heart disease Social History Smoking/Tobacco Use Status: Never Smoking risk assessment performed?: Yes Alcohol Intake: never Substance use type: does not use Housing: house Do you feel safe at home: Yes Do you feel safe in your relationship?: Yes
[2025-07-26 13:33] LABS: Glucose Negative (Negative)
[2025-07-26] MEDS: diphenhydrAMINE 50 MG/ML VIAL 12.5 MG IVP (13:36)
[2025-07-26] MEDS: Prochlorperazine 10 MG/2 ML VIAL 5 MG IVP (13:36)
[2025-07-26] MEDS: Normal Saline 1,000 ML 1000 ML IV (13:37)
[2025-07-26 13:42] LABS: C & S Indicated? No; RBC Negative HPF (0-2)
[2025-07-26 13:48] LABS: Abs Immature Grans 0.02 10^3/uL (0.0-0.06); HCT 39.9 % (36.0-46.0); HGB 13.0 g/dL (11.2-15.7); Immature Grans % 0.3 %; MCH 28.6 pg (27.0-33.0); MCHC 32.6 % (32.0-36.0); MCV 88 fL (80-95); MPV 9.4 fL (8.0-11.0); Platelet Count 263 10^3/uL (130-400); RBC 4.55 10^6/uL (3.93-5.22); RDW 12.6 % (11.7-14.6); RDW-SD 40.5 fL; WBC 6.19 10^3/uL (4.4-10.8)
[2025-07-26 14:06] LABS: ALT 36 U/L (10-49); AST 22 U/L (<34); Albumin 4.3 g/dL (3.2-5.0); Alkaline Phosphatase 76 U/L (46-116); Anion Gap 6 mmol/L (3-11); BUN 13 mg/dL (9-23); Bilirubin, Total 0.50 mg/dL (0.2-1.2); CO2 30.0 mmol/L (20.0-31.0); Calcium 9.0 mg/dL (8.3-10.6); Chloride 103 mmol/L (98-107); Glucose 93 mg/dL (74-106); Potassium 4.1 mmol/L (3.5-5.1); Sodium 139 mmol/L (136-145); Total Protein 6.8 g/dL (5.7-8.2)
[2025-07-26] MEDS: Ketorolac 15 MG/ML VIAL IVP (14:58)
== END 2025-07-26 15:08 | disposition home or self-care (01) ==
PROVIDERS: Emergency Provider Registered Nurse Emergency; PCP Family Medicine
DX: F41.9 Anxiety disorder, unspecified (principal); E78.5 Hyperlipidemia, unspecified
CPT/HCPCS: 36415; 80053; 96374; 96375; 99284; 70450; 81003; 81015; 85025; J0780; J1200; J1885